=== PATIENT | female | born 1980 | race American Indian/Alaskan Native ===

== ENCOUNTER 2021-08-04 06:46 | Day surgery (SDC) | payer MEDICARE ==
[2021-07-28 12:09] LABS: Eosinophils # (Auto) 0.2 K/mm3 (0.0-0.4); Eosinophils % (Auto) 3.7 % (0.0-4.3); Hematocrit 36.6 % (30.3-42.9); Hemoglobin 11.6 gm/dl (10.1-14.3); Lymphocytes % (Auto) 46.2 % (13.4-35.0); Mean Corpuscular HGB Conc 32 % (30-34); Mean Corpuscular Volume 86 fl (79-97); Monocytes # (Auto) 0.4 K/mm3 (0.0-0.8); Monocytes % (Auto) 8.2 % (0.0-7.3); Platelet Count 251 K/mm3 (140-440); Red Blood Count 4.28 M/mm3 (3.65-5.03); Red Cell Distribution Width 16.9 % (13.2-15.2)
[2021-07-28 12:29] LABS: BUN/Creatinine Ratio 11; Blood Urea Nitrogen 9 mg/dL (7-17); Calcium 9.3 mg/dL (8.4-10.2); Hemolysis Index 1
--- NOTE | 2021-08-03 14:04 | History and Physical Report ---
History of Present Illness Date of examination: 08/02/21 History of present illness: Patient has been reassessed/reevaluated. H&P has been reviewed. No interval changes. This is a 41 years old female who presents with uterine fibroids. . Complains of heavy menses. . Notes on her heaviest days she has to change super pads hourly and may wear a tampon if she has to go out. She complains of pelvic pressure, intermenstrual bleeding, abdominal pain, abdominal pressure and pelvic pain. Treatment tried to date includes control pills and uterine artery embolization with only temporary relief. Prior to today's visit the patient has had MRI of pelvis and US of pelvis. Patient states francisco j has been bleeding every day. Patient's symptoms when present disrupts her normal daily activities Conservative therapies have failed. Patient desires definitive treatment Vital Signs: Patient Profile: 41 Years Old Female LMP: 07/17/2021 Height: 67 inches Weight: 174 pounds BMI: 27.25 Temp: 97.3 degrees F BP sittin / 702 Menstrual History: LMP (date): 07/17/2021 Date of Last Pap Smear: 01/26/2021 Past History : 2 Term Births: 1 Premature Births: 1 Living Children: 2 Para: 2 Mult. Births: 0 Prev : 1 Prev. attempt? 0 Aborta: 0 Elect. Ab: 0 Spont. Ab: 0 Ectopics: 0 # 1 Delivery date: 2009 Weeks Gestation: 40 Delivery type: Infant Sex: Male weight: 6-5 # 2 Delivery date: 2010 Weeks Gestation: 27 Delivery type: Infant Sex: Male weight: 1-5 Comments: placenta previa Current Allergies (reviewed today): * PERCOCET (Critical) Past Medical History: Bipolar - PTSD - Anemia (2010) Blood Transfusion (2010) Fibroids Past Surgical History: Pynodial cyst removed - Uterine Fibroid Embolization (04/11/2021) Family History Summary: Other Family Member - Has No Family History of Ovarvian Cancer - Entered On: 08/03/2021 Other Family Member - Has No Family History of Colon Cancer - Entered On: 08/03/2021 Other Family Member - Has No Family History of Breast Cancer - Entered On: 08/03/2021 Other Family Member - Has Family History of Hypertension - Entered On: 08/03/2021 Other Family Member - Has Family History of Diabetes - Entered On: 08/03/2021 General Comments - FH: Sisters - fibroids Social History: Patient is single Smoking History: Patient is a former smoker. Risk Factors Tobacco use: prev. 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 of genital herpes: no Rash/viral illness since LMP: no Hx of STD: Trichomonas Review of Systems General Complains of fatigue. Denies fever, chills, sweats, anorexia, weakness, malaise, weight loss and sleep disorder. Complains of menorrhagia, pelvic pain, painful periods and painful sex. Denies vaginal discharge, incontinence, dysuria, hematuria, urinary frequency, amenorrhea, abnormal vaginal bleeding, genital sores, decreased libido, urinary urgency, hot flashes, vaginal dryness, vaginal itching and vaginal odor. CV Denies chest pains, palpitations, syncope, dyspnea on exertion, orthopnea, PND and peripheral edema. Resp Denies cough, dyspnea at rest, excessive sputum, hemoptysis, wheezing and pleurisy. GI Denies nausea, vomiting, diarrhea, constipation, change in bowel habits, abdominal pain, melena, hematochezia, jaundice, gas/bloating, indigestion/h eartburn, dysphagia and odynophagia. Breast Denies left breast lump, right breast lump, nipple discharge, bloody discharge from nipple, breast pain, abnormal mammogram and breast enlargement. Psych Complains of anxiety. Denies depression, irritability and mood swings. Past History Past Medical History: other (SEE HPI) Past Surgical History: , Other (SEE HPI) Social history: full code, other (SEE HPI) Family history: other (SEE HPI) Medications and Allergies Allergies Allergy/AdvReac Type Severity Reaction Status Date / Time PERCOCET-CAUSES RACING HEART AdvReac Severe Unknown Uncoded 07/27/21 10:47 Home Medications Medication Instructions Recorded Confirmed Last Taken Type lamoTRIgine [LaMICtal] 100 mg PO QDAY 07/27/21 07/27/21 Unknown History risperiDONE [RisperDAL] 0.5 mg PO HS 07/27/21 07/27/21 Unknown History risperiDONE [RisperDAL] 1 mg PO HS 07/27/21 07/27/21 Unknown History Active Meds: Active Medications Cefazolin Sodium (Ancef/Sterile Water 2 Gm/20 Ml) 2 gm in 20 mls @ 80 mls/hr IV PREOP NR; Protocol Stop: 08/04/21 21:00 Review of Systems Constitutional: other (SEE HPI) Exam - Physical Exam Narrative exam: HEENT: normocephalic, no lesions or deformities Skin no ulcers, xanthomas CV: regular, normal S1-S2, no murmur, no rub, no gallop Abdomen: soft, non-tender, no masses, bowel sounds normal Neuro: no gross anomalities Extremities: normal alignment, no joint enlargement, crepitus, masses or tender ness; normal tone and strength 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 No evidence of cystocele or rectocele. Cervix: normal appearance, no lesions, no discharge; deviated to patient's left Uterus: enlarged 10 to 12 weeks in size Adnexae: no masses or tenderness Rectovaginal: exam defered - Constitutional Vitals: Temp Pulse Resp BP Pulse Ox 98.2 F 75 20 100/60 100 07/28/21 11:20 07/28/21 11:20 07/28/21 11:20 07/28/21 11:20 07/28/21 11:20 Results - Labs CBC & Chem 7: 07/28/21 11:20 07/28/21 11:20 Assessment and Plan - Patient Problems (1) Intramural leiomyoma of uterus Current Visit: No Status: Acute Plan to address problem: Diagnosis explained to patient . Questions answered. Discussed with patient various medical, surgical and radiological therapies common for treatment including expectant management, myomectomy hysterectomy and uterine artery embolization Conservative therapies have failed. Patient desires definitive treatment Patient desires hysterectomy Discussed risks and benefits of laparotomy, laparoscopy, vaginal and robotic assisted approaches for hysterectomies Patient desires robotic assisted total hysterectomy. Consent reviewed and signed . The risks and alternatives for this surgery were reviewed with the patient. Discuss the risks of the surgery including infection, bleeding possibly heavy enough to require a blood transfusion, possible damage to bowel, bladder or ureter. Patient understand that this surgery with make her sterile. Patient understands if her ovaries are removed she will become menopausal. Also if unable to complete robitcally a laparotomy may be required. Patient understands and desires to proceed. (2) Dysmenorrhea Current Visit: No Status: Acute Plan to address problem: Probably secondary to # 1 (3) Menometrorrhagia Current Visit: No Status: Acute Plan to address problem: Probably secondary to # 1 (4) Anemia due to chronic blood loss Current Visit: No Status: Chronic Plan to address problem: Probably secondary to # 2 (5) Post traumatic stress disorder (PTSD) Current Visit: No Status: Chronic (6) Bipolar disease, chronic Current Visit: No Status: Chronic
[~2021-08-04 06:46] MED LIST: ACETAMINOPHEN 500 MG TAB PO SCH; CELECOXIB 200 MG CAP PO NR; GABAPENTIN 300 MG CAP PO NR; LACTATED RINGERS 1,000 ML IV SCH; MIDAZOLAM 2 MG/2 ML INJ IV NR; SCOPOLAMINE TRANSDERMAL PATCH 72 HR TD NR; fentaNYL 100 MCG/2 ML INJ IV PRN; methOCARBAMOL 1,000 MG in SODIUM CHLORIDE 0.9% 250ML 250 ML IV SCH
[2021-08-04] MEDS ORDERED: ceFAZolin/Water 2 GM/20 ML 2 GM/20 ML SYRINGE IV NR (07:00)
[2021-08-04] MEDS ORDERED: BUPIVACAINE/PF (0.5%) 5 MG/1 ML 30 ML VIAL INFILTRATI ONE (07:26)
[2021-08-04] MEDS ORDERED: SODIUM CHLORIDE P/F VIAL 10 ML 20 ML ONE ×2 (07:26→07:35)
[2021-08-04] MEDS ORDERED: dexAMETHasone 20 MG/5 ML VIAL ONE ×2 (07:26→08:29)
[2021-08-04] MEDS ORDERED: MAGNESIUM SULFATE 4 GM/100 ML BAG IV ONE (07:34)
[2021-08-04] MEDS ORDERED: LIDOCAINE MPF (2%) 20 MG/1 ML VIAL 5 ML ONE (07:35)
[2021-08-04] MEDS ORDERED: ROCURONIUM 50 MG/5 ML INJ IV ONE (07:35)
[2021-08-04] MEDS ORDERED: KETAMINE/STERILE WATER 50 MG/ML SYRINGE ONE (07:36)
[2021-08-04] MEDS ORDERED: propofoL 200 MG/20 ML VIAL IV ONE (07:36)
[2021-08-04] MEDS ORDERED: NEOMY 40 MG/POLYMYXIN B 200,000 UNITS/ML (GU) AMPULE IR ONE ×2 (07:41→09:24)
--- NOTE | 2021-08-04 07:59 | Anesthesia Consultation ---
Anesthesia Consult and Med Hx Date of service: 08/04/21 - Airway Anesthetic Teeth Evaluation: Good ROM Head & Neck: Adequate Mental/Hyoid Distance: Adequate Mallampati Class: Class I Intubation Access Assessment: Good - Pre-Operative Health Status ASA Pre-Surgery Classification: ASA2 Proposed Anesthetic Plan: General Nerve Block: ES - Pulmonary Hx Smoking: Yes (former smoker quit 5 yrs) Hx Respiratory Symptoms: No - Cardiovascular System Hx Hypertension: No - Central Nervous System CVA: No Hx Psychiatric Problems: Yes (PTSD) - Endocrine Hx Renal Disease: No Hx Liver Disease: No Hx Insulin Dependent Diabetes: No Hx Non-Insulin Dependent Diabetes: No Hx Thyroid Disease: No - Additional Comments Anesthesia Medical History Comments: Hx hiccups after UFE under sedation. Otherwise no anesthetic complications. Reports allergy to percocet. Has tolerated tramdol for pain in the past. Has not tried hydrocodone.
--- NOTE | 2021-08-04 07:59 | Anesthesia Day of Surgery ---
Anesthesia Day of Surgery - Day of Surgery Patient Examined: Yes Patient H&P Reviewed: Yes Patient is NPO: Yes
[2021-08-04] MEDS ORDERED: ePHEDrine SULFATE 50 MG/1 ML INJ ONE (08:26)
[2021-08-04] MEDS ORDERED: KETOROLAC 30 MG/1 ML INJ ONE (08:30)
[2021-08-04] MEDS ORDERED: PHENYLEPHRINE/NS 1,000 MCG/10 ML SYRINGE (OR USE) IV ONE (08:49)
[2021-08-04] MEDS ORDERED: HYDROmorphone 1 MG/1 ML INJ IV PRN (09:00)
[2021-08-04] MEDS ORDERED: ONDANSETRON 4 MG/2 ML INJ IV PRN (09:00)
[2021-08-04] MEDS ORDERED: traMADol 50 MG TAB PO PRN (09:00)
[2021-08-04] MEDS ORDERED: SODIUM CHLORIDE 0.9% IRR 1,500 ML BOTTLE IR ONE (09:25)
[2021-08-04] MEDS ORDERED: SODIUM CHLORIDE 0.9% IRRIG SOLN 2000 ML IR ONE (09:25)
[2021-08-04] MEDS ORDERED: GLYCOPYRROLATE 0.4 MG/2 ML INJ ONE (09:53)
[2021-08-04] MEDS ORDERED: NEOSTIGMINE 10MG/10 ML INJ MDV ONE (09:53)
[2021-08-04] MEDS ORDERED: ACETAMINOPHEN 325 MG TAB PO PRN (10:53)
--- NOTE | 2021-08-04 11:04 | Operative Report ---
Operative Report Operative Report: Date of procedure: August 04, 2021 Pre-operative diagnosis: Symptomatic leiomyomata Post-operative diagnosis: Same plus pelvic adhesive disease Procedure name(s):Robotic Assisted Total Hysterectomy with bilateral salpingectomy and lysis of adhesions Surgeon: Denilson Grewal MD Dray Driver: Fang Moeller MD Anesthesia: General EBL: 25 cc Complications: None Findings: Patient with uterus approximately 12 weeks in size with leiomyomata she had normal-appearing fallopian tubes and ovaries bilaterally did have adhesions in anterior uterus to the bladder and omental adhesions to anterior right abdominal wall Specimen(s): Uterus with cervix and bilateral fallopian tubes Procedure: Patient was brought to the operating room where general anesthesia was induced without difficulty. Patient was placed in the dorsal lithotomy position. Prepped and draped in the usual sterile manner for robotic procedure. Caldwell catheter was placed without difficulty. Speculum was placed in the vagina. A medium V-Care Uterine manipulator was placed without difficulty. Attention was now switched to the patient's abdomen. A vertical supra-umbilicus incision was made with a scalpel. A 10-12 trocar was placed in this incision under direct visualization. Intra-abdominal placement was verified with no evidence of internal organ damage. The patient was insufflated approximately 3-1/2 L of CO2 gas. She was placed in Trendelenburg position. The patient pelvic findings were noted as above. It was determined that the patient was a candidate for robotic procedure. On the left side of the umbilical incision at about 8 cm, incision was made a for robotic trocar. The trocar was placed under direct visualization without evidence of internal organ damage. Through this trocar laparoscopic scissors were used to take down the omental adhesions on the right lower quadrant to makes area for introduction of the right robotic trocar. This was done with good hemostasis. The right robotic trocar was placed under direct visualization with no evidence of internal organ damage. One 5 mm trocar was placed 2 fingerbreadths above the right iliac crest. A 5 mm camera was placed in the right lower quadrant trocar, the 10-12 trocar was removed and a Aakash Rivas laparoscopic port closure device was placed through this incision under direct visualization with no evidence of internal organ damage. The camera was then replaced into this port. At this time the patient was placed in extreme Trendelenburg. The da Nico robot was then docked on the patient's left side. The trocars connected to the robot appropriately robotic instruments were placed under direct visualization no evidence of internal organ damage.. At this time I took my place under the robotic operating bettencourt. Starting on the patient's right side the ureter was identified and found to be out of the operative field. Using the robotic vessel sealer the mesosalpinx under the fallopian tube were cauterized and cut starting from the distal end. Utero-ovarian complex was then cauterized and cut. This was followed by cauterizing and cutting the right fallopian tube and right round ligament. The broad ligament was then opened. The bladder flap was formed anteriorly taken down adhesions between the anterior uterus and the bladder. The posterior broad ligament was then excised. The uterine vessels were skeletonized. The ureter was clearly seen out of the operative field. The bladder was pushed away from the anterior uterus. The right uterine vessels were then cauterized and cut. Attention was then switched to the patient's left side. The same procedure was repeated on the left side with perform the salpingectomy followed by isolating the uterine vessels cauterized and cutting and completing the bladder flap from the left side. At this time the uterus was appearing very cyanotic. After inspecting the bladder flap to insured no evidence of bladder injury, the colpotomy was then started. Incision started at 6:00 until the V-Care could be seen. This incision was extended from 6:00 to 9:00. Then from 6:00 to 3:00. Then from 9:00 to 12:00. This incision was extended from 3:00 to 12:00. At this time colpotomy was complete with no evidence of adjacent organ damage. The senior assistant manager remove the uterus from through the colpotomy site. The vaginal cuff was irrigated and cauterized and found to be hemostatic. The cuff was closed with roboticly using 0 V- Lock suture. This closure was hemostatic after irrigation and Bovie. All pedicles were inspected and found to be hemostatic. The ureters were identified bilaterally and found to be functioning normal. The patient had clear urine in the Caldwell catheter with no evidence of mixture with blood. All instruments were then removed. The large trocar sites were closed in layers 2-0 Vicryl and 4-0 Monocryl. The smaller incisions were closed subcuticularly with 4-0 Monocryl. Dermabond was placed over the skin incisions. The patient tolerated procedure well. She was awakened in the operating room and accompanie d to the recovery room in good condition.
--- NOTE | 2021-08-04 14:06 | Discharge Summary ---
Short Stay Discharge Plan Activity: advance as tolerated Diet: regular Wound: open to air Additional Instructions: Patient was admitted underwent the above him procedure without any complications. Patient was admitted and underwent above procedure without complications. Her post operative extended recovery observation course was benign she was afebrile throughout. Patient had no orthostatic symptoms. Patient was tolerating diet and voiding without difficulty at time of discharge. Patient incision was healing well without evidence of infection. Patient will be discharged with follow-up in office in 1-2 weeks for postop check patient instructed no heavy lifting for 4 weeks. No intercourse for 8 weeks. Call office for fever, chills, nausea, vomiting or pain not controlled by pain medications. Ambulation is encouraged. Patient's call for heavy vagin al bleeding. Patient instructed to keep her scheduled post operative office appointment. Follow up with: [facility]IMARY [facility]ARE, [Primary Care Provider] - 7 Days Prescriptions: RX: Ibuprofen [Motrin 800 MG tab] 800 mg PO Q6H PRN #30 tablet PRN Reason: Pain RX: traMADoL [Ultram 50 MG tab] 50 mg PO Q6HR PRN #20 tablet PRN Reason: Pain , Severe (7-10)
--- NOTE | 2021-08-04 15:32 | Post Anesthesia Evaluation ---
- Post Anesthesia Evaluation Patient Participated: Yes Airway Patent: Yes Stable Respiratory Function: Yes Nausea/Vomiting: No Temp > 96.8F: Yes Pain Manageable: Yes Adequeate Hydration: Yes Anesthesia Complications: No
[2021-08-04 16:39] VITALS: BP 128/70
== END 2021-08-04 14:55 | disposition home or self-care (01) ==
LOC: OR 06:46
PROVIDERS: ATTEND Obstetrics & Gynecology
DX: D25.1 Intramural leiomyoma of uterus (principal); N94.5 Secondary dysmenorrhea; Z20.822 Contact with and (suspected) exposure to COVID-19; K66.0 Peritoneal adhesions (postprocedural) (postinfection); N85.8 Other specified noninflammatory disorders of uterus; F31.9 Bipolar disorder, unspecified; F43.10 Post-traumatic stress disorder, unspecified; D50.0 Iron deficiency anemia secondary to blood loss (chronic); N94.6 Dysmenorrhea, unspecified; N92.1 Excessive and frequent menstruation with irregular cycle; K21.9 Gastro-esophageal reflux disease without esophagitis; Z98.891 History of uterine scar from previous surgery; Z79.899 Other long term (current) drug therapy; Z87.891 Personal history of nicotine dependence; Z88.8 Allergy status to other drugs, medicaments and biological substances; Z98.890 Other specified postprocedural states
CPT/HCPCS: 36415; 58571; 64999; 80048; 81025; 85025; 86850; 86900; 86901; 88307; J0690; J1100; J1815; J1885; J2250; J2370; J2405; J2704; J2710; J2800; J3010; J3475; J3490; J7050; J7120; U0003; 64450; J7121